=== PATIENT | female | born 1970 | race Caucasian/White ===

== ENCOUNTER 2018-12-18 09:52 | Inpatient (IN) | payer OTHER ==
--- NOTE | 2018-12-18 10:26 | PDOC ---
History of Present Illness - General History Source: Patient Exam Limitations: No Limitations - History of Present Illness Initial Comments: 12/18/18 10:43 The patient is a 48 year old female with a past medical history of insulin dependent diabetes here today for evaluation of toe pain. Patient reports that her right big toe pain began in September of 2018 and went to an urgent care facility who referred her to a finger grip machine operator. She reports that the finger grip machine operator cut off her nail which did not alleviate her symptoms. Patient went to Dr. Thakur for the pain and redness of her toe and began to take bactrim and augmentin [address] Thakur sent her to the ER today due to elevated white blood cell count. Patient denies headache, lightheadedness. Denies fever, chills. Denies chest pain, shortness of breath. Denies nausea, vomiting, diarrhea, abdominal pain. Allergies: NKA Social history: Patient confirms tobacco use PCP: Dr. Urbano <Sukhdeep Hart - Last Filed: 12/18/18 10:57> <Ruben Alcaraz - Last Filed: 12/18/18 14:34> - General Chief Complaint: Back Pain Stated Complaint: PCP SENT FOR ADMISSION Time Seen by Provider: 12/18/18 10:25 Past History <Sukhdeep Hart - Last Filed: 12/18/18 10:57> - Past Medical History COPD: No Diabetes: Yes (onn insulin) HTN: Yes - Suicide/Smoking/Psychosocial Hx Smoking History: Current some day smoker Number of Cigarettes Smoked Daily: 4 Information on smoking cessation initiated: No Hx Alcohol Use: No Drug/Substance Use Hx: No <Ruben Alcaraz - Last Filed: 12/18/18 14:34> - Past Medical History Allergies/Adverse Reactions: Allergies Allergy/AdvReac Type Severity Reaction Status Date / Time No Known Allergies Allergy Verified 12/18/18 10:11 Home Medications: Ambulatory Orders Gabapentin [Neurontin -] 400 mg PO Q8H 12/18/18 Insulin Glargine,Hum.rec.anlog [Lantus] 25 unit SQ HS 12/18/18 Lisinopril [Zestril] 5 mg PO DAILY 12/18/18 Oxycodone HCl 30 mg PO TID 12/18/18 Sitagliptin Phos/Metformin HCl [Janumet 50-1,000 mg Tablet] 1 each PO BID Review of Systems - Review of Systems Able to Perform ROS?: Yes Comments:: 12/18/18 10:43 A complete review of 10 out of 10 review of systems is taken and is negative apart from what is previously mentioned below and in the HPI. <Sukhdeep Hart - Last Filed: 12/18/18 10:57> *Physical Exam - Vital Signs Last Vital Signs Temp Pulse Resp BP Pulse Ox 98.6 F 90 16 115/67 99 12/18/18 10:11 12/18/18 10:11 12/18/18 10:11 12/18/18 10:11 12/18/18 10:11 - Physical Exam Comments: 12/18/18 10:45 Vitals: Triage vital signs reviewed General Appearance: No acute distress, well nourished, well developed Head: Atraumatic Chest Wall: Nontender Cardiac: Regular rate and rhythm, no murmurs, no rubs, no gallops Lungs: Clear to auscultation bilateral, good air movement bilaterally Extremities: +tenderness and erythema of right big toe s/p removal of toe nail. Full range of motion to all extremities, no cyanosis, clubbing, or edema Skin: Warm and dry, no rashes or lesions, no rash, no petechiae Neuro: AOX3; Cranial Nerves 2-12 grossly intact, Strength intact to all extremities, Sensation intact to all extremities, gait normal Psych: Normal mood, normal affect <Sukhdeep Hart - Last Filed: 12/18/18 10:57> - Vital Signs Last Vital Signs Temp Pulse Resp BP Pulse Ox 98.6 F 90 16 115/67 99 12/18/18 10:11 12/18/18 10:11 12/18/18 10:11 12/18/18 10:11 12/18/18 10:11 <Ruben Alcaraz - Last Filed: 12/18/18 14:34> Moderate Sedation - Procedure Monitoring Vital Signs: Procedure Monitoring Vital Signs Temperature 98.6 F 12/18/18 10:11 Pulse Rate 90 12/18/18 10:11 Respiratory Rate 16 12/18/18 10:11 Blood Pressure 115/67 12/18/18 10:11 O2 Sat by Pulse Oximetry (%) 99 12/18/18 10:11 <Sukhdeep Hart - Last Filed: 12/18/18 10:57> - Procedure Monitoring Vital Signs: Procedure Monitoring Vital Signs Temperature 98.6 F 12/18/18 10:11 Pulse Rate 90 12/18/18 10:11 Respiratory Rate 16 12/18/18 10:11 Blood Pressure 115/67 12/18/18 10:11 O2 Sat by Pulse Oximetry (%) 99 12/18/18 10:11 <Ruben Alcaraz - Last Filed: 12/18/18 14:34> ED Treatment Course - LABORATORY CBC & Chemistry Diagram: 12/18/18 11:11 12/18/18 11:11 <Ruben Alcaraz - Last Filed: 12/18/18 14:34> Medical Decision Making - Medical Decision Making 12/18/18 10:43 The patient is a 48 year old female with a past medical history of insulin dependent diabetes and HTN here today for evaluation of toe pain. <Sukhdeep Hart - Last Filed: 12/18/18 10:57> - Medical Decision Making 12/18/18 12:02 Failure of outpatient oral antibiotics for the last 2 months. Increasing WBC. Patient sent to the ED for admission by podiatry Consult placed IV vancomycin and Zosyn ordered We'll admit to medicine for further management. 12/18/18 14:34 <Ruben Alcaraz - Last Filed: 12/18/18 14:34> *DC/Admit/Observation/Transfer - Attestations Scribe Attestion: 12/18/18 10:45 Documentation prepared by JAY Jesus, acting as medical biller coder for Ruben Alcaraz MD. <Sukhdeep Hart - Last Filed: 12/18/18 10:57> - Discharge Dispostion Decision to Admit order: Yes <Ruben Alcaraz - Last Filed: 12/18/18 14:34> Diagnosis at time of Disposition: Diabetic foot infection - Discharge Dispostion Condition at time of disposition: Good
[2018-12-18] MEDS ORDERED: VANCOMYCIN 1,000 MG in DEXTROSE 5%-WATER - 250 ML IVPB ONE (10:32)
[2018-12-18] MEDS ORDERED: VANCOMYCIN 1 GRAM (PRE-DOCKED) 1,000 MG/250 ML BAG IVPB ONE (11:19)
[2018-12-18 11:23] LABS: BASO % 0.5 % (0-2.0); HEMATOCRIT 41.2 % (32.4-45.2); HEMOGLOBIN 14.6 GM/dL (10.7-15.3); LYMPH % 25.3 % (8-40); MCH 32.8 pg (25.7-33.7); MCHC 35.3 g/dl (32.0-36.0); MEAN CELL VOLUME 92.9 fl (80-96); MEAN PLT VOLUME 8.5 fl (7.5-11.1); MONO % 4.8 % (3.8-10.2); NEUT % 68.4 % (42.8-82.8); PLATELET COUNT 289 K/MM3 (134-434); RBC 4.44 M/mm3 (3.60-5.2); RDW 14.3 % (11.6-15.6)
[2018-12-18 11:53] LABS: INR 0.92 (0.83-1.09); PROTHROMBIN TIME (PATIENT) 10.8 SEC (9.7-13.0)
[2018-12-18 11:55] LABS: ACTIVATED PTT 29.1 SECONDS (25.2-36.5)
[2018-12-18 11:57] LABS: ALBUMIN 3.4 g/dl (3.4-5.0); ALK PHOS 100 U/L (45-117); ANION GAP 4 MMOL/L (8-16); BILIRUBIN,TOTAL 0.6 mg/dL (0.2-1); BLOOD UREA NITROGEN 7 mg/dL (7-18); CALCIUM 8.3 mg/dL (8.5-10.1); CHLORIDE 105 mmol/L (98-107); CO2 29 mmol/L (21-32); CREATININE 0.5 mg/dL (0.55-1.3); GLUCOSE,RANDOM 84 mg/dL (74-106); SGOT/AST 11 U/L (15-37); SGPT/ALT 10 U/L (13-61); SODIUM 138 mmol/L (136-145); TOT PROT 6.6 g/dl (6.4-8.2)
--- NOTE | 2018-12-18 11:58 | EKG ---
Test Reason : Blood Pressure : / mmHG Vent. Rate : 085 BPM Atrial Rate : 085 BPM P-R Int : 160 ms QRS Dur : 084 ms QT Int : 386 ms P-R-T Axes : 063 004 018 degrees QTc Int : 459 ms NORMAL SINUS RHYTHM LOW VOLTAGE QRS CANNOT RULE OUT ANTERIOR INFARCT , AGE UNDETERMINED ABNORMAL ECG NO PREVIOUS ECGS AVAILABLE Confirmed by FRANCO MCCONNELL MD ([id number]) on 12/18/2018 11:57:35 AM Referred By: Confirmed By:FRANCO MCCONNELL MD
--- NOTE | 2018-12-18 12:37 | HP ---
CHIEF COMPLAINT: "Sent in by Dr. Thakur for toe infection-failed outpatient therapy" PCP: Dr. Urbano HISTORY OF PRESENT ILLNESS: Patient is a 48 year old female, new to [facility], was sent in to the ED by Dr. Thakur for toe infection-failed outpatient therapy. As per the patient, initially she started having pain in bilateral great toe in September,, saw a Production Proofreader who clipped the nails and sent home. After few days pain got worse , she noticed some redness went to urgent care, blood work was done sent home without any antibiotics. However, the symptoms got worse again, went to urgent care multiple times for an abscess in the right great toe, was drained and got treated with Augmentin and Bactrim. Then last week went to Dr. Thakur's office, wbc noted to be rising then recommended her to be admitted for IV antibiotics. Hence came in to the ED. Patient also reports that pain exists but denies fever, chills, rigors or sweating. Review of other systems were negative. Bowel/bladder habit normal. Sleep/appetite normal. ER course was notable for: (1) Afebrile. Leukocytosis of 13, CRP 1.3, ESR 12 (2) Foot xray: official read pending (3) IV Vancomycin Recent Travel: None PAST MEDICAL HISTORY: DM dx in 2011, Hypertension, chronic back pain, 2000 BSO, PAST SURGICAL HISTORY: 2000 3 surgeries of her ovaries (unsure of the details), 2004 (?washout of the fallopian tubes), 2001 Left knee ligament repair, 2011 spine sx. Social History: Smoking: Active smoker, smokes 1 pack/day since she was 17 Alcohol: Denies Drugs: Denies Family History: Non contributory Occupation: Retired legal administrator Allergies No Known Allergies Allergy (Verified 12/18/18 10:11) HOME MEDICATIONS: Home Medications Medication Instructions Recorded Gabapentin [Neurontin -] 400 mg PO Q8H 12/18/18 Insulin Glargine,Hum.rec.anlog 25 unit SQ HS 12/18/18 [Lantus] Lisinopril [Zestril] 5 mg PO DAILY 12/18/18 Oxycodone HCl 30 mg PO TID 12/18/18 Sitagliptin Phos/Metformin HCl 1 each PO BID 12/18/18 [Janumet 50-1,000 mg Tablet] REVIEW OF SYSTEMS CONSTITUTIONAL: Absent: fever, chills, diaphoresis, generalized weakness, malaise, loss of appetite, weight change HEENT: Absent: rhinorrhea, nasal congestion, throat pain, throat swelling, difficulty swallowing, mouth swelling, ear pain, eye pain, visual changes CARDIOVASCULAR: Absent: chest pain, syncope, palpitations, irregular heart rate, lightheadedness , peripheral edema RESPIRATORY: Absent: cough, shortness of breath, dyspnea with exertion, orthopnea, wheezing, stridor, hemoptysis GASTROINTESTINAL: Absent: abdominal pain, abdominal distension, nausea, vomiting, diarrhea, constipation, melena, hematochezia GENITOURINARY: Absent: dysuria, frequency, urgency, hesitancy, hematuria, flank pain, genital pain MUSCULOSKELETAL: Absent: myalgia, arthralgia, joint swelling, back pain, neck pain SKIN: Present: Redness and pain in the right great toe Absent: rash, itching, pallor HEMATOLOGIC/IMMUNOLOGIC: Absent: easy bleeding, easy bruising, lymphadenopathy, frequent infections ENDOCRINE: Absent: unexplained weight gain, unexplained weight loss, heat intolerance, cold intolerance NEUROLOGIC: Absent: headache, focal weakness or paresthesias, dizziness, unsteady gait, seizure, mental status changes, bladder or bowel incontinence PSYCHIATRIC: Absent: anxiety, depression, suicidal or homicidal ideation, hallucinations. PHYSICAL EXAMINATION Vital Signs - 24 hr 12/18/18 10:11 Temperature 98.6 F Pulse Rate 90 Respiratory 16 Rate Blood Pressure 115/67 O2 Sat by Pulse 99 Oximetry (%) GENERAL: young female, lying in bed comfortably, Awake, alert, and fully oriented, in no acute distress. EYES: EOM intact, no pallor or icterus. NECK: Supple. LUNGS: B/L breath sounds equal, no added sounds. HEART: Regular rate and rhythm, normal S1 and S2 without murmur. ABDOMEN: Soft, nontender, BS +, no organomegaly. UPPER EXTREMITIES: 2+ pulses, warm, well-perfused. No cyanosis. No clubbing. No peripheral edema. LOWER EXTREMITIES: B/L great toe-brownish discoloration + 2+ pulses, warm, well-perfused. No calf tenderness. No peripheral edema. NEUROLOGICAL: No facial droop. Power 5.5 in all extremites. Sensation intact. Cranial nerves II-XII intact. Normal speech. Gait not observed. PSYCHIATRIC: Cooperative. Good eye contact. Appropriate mood and affect. SKIN: Warm, dry, normal turgor, no rashes or lesions noted, normal capillary refill. Laboratory Results - last 24 hr 12/18/18 12/18/18 12/18/18 11:11 11:11 11:11 WBC 13.0 H RBC 4.44 Hgb 14.6 Hct 41.2 MCV 92.9 MCH 32.8 MCHC 35.3 RDW 14.3 Plt Count 289 MPV 8.5 Absolute Neuts (auto) 8.9 H Neutrophils % 68.4 Lymphocytes % 25.3 Monocytes % 4.8 Eosinophils % 1.0 Basophils % 0.5 Nucleated RBC % 0 PT with INR 10.80 INR 0.92 PTT (Actin FS) 29.1 Sodium 138 Potassium 4.0 Chloride 105 Carbon Dioxide 29 Anion Gap 4 L BUN 7 Creatinine 0.5 L Creat Clearance w eGFR > 60 Random Glucose 84 Calcium 8.3 L Total Bilirubin 0.6 AST 11 L ALT 10 L Alkaline Phosphatase 100 C-Reactive Protein 1.3 H Total Protein 6.6 Albumin 3.4 Blood Type Antibody Screen 12/18/18 11:11 WBC RBC Hgb Hct MCV MCH MCHC RDW Plt Count MPV Absolute Neuts (auto) Neutrophils % Lymphocytes % Monocytes % Eosinophils % Basophils % Nucleated RBC % PT with INR INR PTT (Actin FS) Sodium Potassium Chloride Carbon Dioxide Anion Gap BUN Creatinine Creat Clearance w eGFR Random Glucose Calcium Total Bilirubin AST ALT Alkaline Phosphatase C-Reactive Protein Total Protein Albumin Blood Type O POSITIVE Antibody Screen Negative ASSESSMENT/PLAN: Patient is a 48 year old female with significant past medical hx of DM, HTN, chronic back pain was Sent in by Dr. Thakur for toe infection-failed outpatient therapy" # Infection of the great toe nails-r/o osteomyelitis Patient has been getting treatment x 2 months as outpatient, seen 2 vascular physician, completed bactrim and Augmentin, however, on outpatient labs, found to have elevated WBC, pt continues to have pain in both the great toes. Admit to Med-Surg Received a dose of IV Vancomycin in the ED Start IV Unasyn 3gm Q8H Blood cultures/urine cultures pending Foot x-ray done, official read pending Would consider MRI of the b/l foot Discussed with Dr. Thakur, will admit the patient and start on IV Abx Discussed with Dr. Luther # DM A1c in 2017 was 6.6. A1c ordered. Continue ISS. Watch for hypoglycemic episodes # Hypertension Continue Lisinopril 5mg PO daily # Chronic back pain Continue Oxycodone 30mg Q8H PRN # Diabetic neuropathy Continue Gabapentin # Active smoker Patient wants to quit smoker. Nicotine patch ordered # FEN Not on IV fluids, can tolerate PO Electrolytes WNL Diabetic diet # Prophylaxis For DVT: On Lovenox 40mg sq daily For GI: Not indicated # Code Status: Full Code # Dispo: Admit to Med-Surg. Duration of stay unknown. Illness, Investigation and Plan of care explained to the patient. She verbalized understanding. Case discussed with Dr. Osorio. Visit type - Emergency Visit Emergency Visit: Yes ED Registration Date: 12/18/18 Care time: The patient presented to the Emergency Department on the above date and was hospitalized for further evaluation of their emergent condition. - New Patient This patient is new to me today: Yes Date on this admission: 12/18/18 - Critical Care Critical Care patient: No
--- NOTE | 2018-12-18 13:24 | CON.ID ---
Consult Consult Specialty:: infectious diseases Referred by:: Reason for Consultation:: r/o osteo of the great toe - History of Present Illness Chief Complaint: pain swelling and pus drainage from the great toe History of Present Illness: 48 year old female, new to [facility], was sent in to the ED by Dr. Thakur for toe infection-failed outpatient therapy. As per the patient, initially she started having pain in bilateral great toe in September,, saw a Treasury Agent who clipped the nails and sent home. After few days pain got worse, she noticed some redness went to urgent care, blood work was done sent home without any antibiotics. However, the symptoms got worse again, went to urgent care multiple times for an abscess in the right great toe, was drained and got treated with Augmentin and Bactrim. patient was still not becoming well,so was send to the hospital for work up and to figure out if the patient has osteo and then further management currently patient feels ok - History Source History Provided By: Patient Limitations to Obtaining History: No Limitations - Alcohol/Substance Use Hx Alcohol Use: No - Smoking History Smoking history: Current some day smoker Aproximately how many cigarettes per day: 4 Home Medications - Allergies Allergies/Adverse Reactions: Allergies Allergy/AdvReac Type Severity Reaction Status Date / Time ibuprofen [From Motrin] Allergy Hives Verified 12/18/18 15:58 - Home Medications Home Medications: Ambulatory Orders Gabapentin [Neurontin -] 400 mg PO Q8H 12/18/18 Insulin Glargine,Hum.rec.anlog [Lantus] 25 unit SQ HS 12/18/18 Lisinopril [Zestril] 5 mg PO DAILY 12/18/18 RX: Oxycodone HCl 30 mg PO TID 12/18/18 Sitagliptin Phos/Metformin HCl [Janumet 50-1,000 mg Tablet] 1 each PO BIDAC Review of Systems - Review of Systems Constitutional: reports: Chills Eyes: reports: No Symptoms HENT: reports: No Symptoms Neck: reports: No Symptoms Cardiovascular: reports: No Symptoms Respiratory: reports: No Symptoms Gastrointestinal: reports: No Symptoms Genitourinary: reports: No Symptoms Musculoskeletal: reports: No Symptoms Integumentary: reports: Erythema, Other Neurological: reports: No Symptoms Endocrine: reports: No Symptoms Hematology/Lymphatic: reports: No Symptoms Psychiatric: reports: No Symptoms Physical Exam Vital Signs: Vital Signs Temperature 98.6 F 12/18/18 10:11 Pulse Rate 90 12/18/18 10:11 Respiratory Rate 16 12/18/18 10:11 Blood Pressure 115/67 12/18/18 10:11 O2 Sat by Pulse Oximetry (%) 99 12/18/18 10:11 Constitutional: Yes: Well Nourished, No Distress, Calm Eyes: Yes: Conjunctiva Clear HENT: Yes: Atraumatic, Normocephalic Neck: Yes: Supple, Trachea Midline Cardiovascular: Yes: Regular Rate and Rhythm Respiratory: Yes: Regular, CTA Bilaterally Gastrointestinal: Yes: Normal Bowel Sounds, Soft Musculoskeletal: Yes: WNL Extremities: Yes: Erythema, Other Integumentary: Yes: Erythema, Other Wound/Incision: Yes: Clean/Dry, Other (no drainage noted) Neurological: Yes: Alert, Oriented Psychiatric: Yes: Alert, Oriented Labs: CBC, BMP 12/18/18 11:11 12/18/18 11:11 Imaging - Results Chest X-ray: Report Reviewed, Image Reviewed X-ray: Report Reviewed, Image Reviewed Assessment/Plan This is a 48 year old woman with a history of HTN, type 2 DM, peripheral neuropathy, chronic back pain who was sent to the ED by Dr. Thakur for infected right 1st toe. 1. Right 1st toe abscess and cellulitis 2. Onychomycosis of toes 3. Type 2 DM with peripheral neuropathy 4. HTN 5. Chronic back pain 6. Obesity with BMI 33.3 i think from the history and the way patient is i think she has osteo plan will start patient on abx mri watch for drainage get the cx report
[2018-12-18] MEDS ORDERED: AMPICILLIN NA/SULBACTAM NA 3 GM in SODIUM CHLORIDE 100 ML IVPB SCH ×2 (14:15→18:00)
[2018-12-18] MEDS ORDERED: GABAPENTIN 100 MG CAPSULE (FP) ONE (14:18)
[2018-12-18] MEDS ORDERED: oxyCODONE HCL 5 MG TABLET ONE (14:24)
[2018-12-18] MEDS: GABAPENTIN 400 MG CAPSULE (FP) PO SCH ×2 (14:33→21:58)
[2018-12-18] MEDS: oxyCODONE HCL 5 MG TABLET PO PRN ×2 (14:34→21:58)
--- NOTE | 2018-12-18 14:34 | PN ---
Teaching Attending Note Name of Resident: Talia Ward ATTENDING PHYSICIAN STATEMENT I saw and evaluated the patient. I reviewed the resident's note and discussed the case with the resident. I agree with the resident's findings and plan as documented. SUBJECTIVE: This is a 48 year old woman with a history of HTN, type 2 DM, peripheral neuropathy, chronic back pain who was sent to the ED by Dr. Thakur for infected right 1st toe. She says that she developed pain in the toe in September 2018. She went to urgent care and was referred to a oil developer who she says removed the nails from both 1st toes. She says that the she had pain in both toes afterwards. She went to urgent care multiple times and was diagnosed with an abscess of the right 1st toe. The abscess was drained and she was treated with Augmentin and Bactrim. There continued to be no improvement and so she went to [facility] ED. Admission was advised, but she could not stay because of childcare problems. She went to see Dr. Thakur yesterday and he also recommended she be admitted for IV antibiotics. OBJECTIVE: Vital Signs Period Temp Pulse Resp BP Sys/Brennan Pulse Ox Last 24 Hr 98.6 F 90 16 115/67 99 HEART: S1S2, RRR LUNGS: Clear ABDOMEN: Soft, obese, non-tender, non-distended, normal BS EXTREMITIES: Right 1st toe swollen, tender, and discolored. Left 1st toe nail bed discolored. Both nails have been removed Laboratory Tests 12/18/18 12/18/18 12/18/18 11:11 11:11 11:11 WBC 13.0 H RBC 4.44 Hgb 14.6 Hct 41.2 MCV 92.9 MCH 32.8 MCHC 35.3 RDW 14.3 Plt Count 289 MPV 8.5 Absolute Neuts (auto) 8.9 H Neutrophils % 68.4 Lymphocytes % 25.3 Monocytes % 4.8 Eosinophils % 1.0 Basophils % 0.5 Nucleated RBC % 0 ESR 12 PT with INR INR PTT (Actin FS) Sodium 138 Potassium 4.0 Chloride 105 Carbon Dioxide 29 Anion Gap 4 L BUN 7 Creatinine 0.5 L Creat Clearance w eGFR > 60 Random Glucose 84 Calcium 8.3 L Total Bilirubin 0.6 AST 11 L ALT 10 L Alkaline Phosphatase 100 C-Reactive Protein 1.3 H Total Protein 6.6 Albumin 3.4 Blood Type Antibody Screen 12/18/18 12/18/18 11:11 11:11 WBC RBC Hgb Hct MCV MCH MCHC RDW Plt Count MPV Absolute Neuts (auto) Neutrophils % Lymphocytes % Monocytes % Eosinophils % Basophils % Nucleated RBC % ESR PT with INR 10.80 INR 0.92 PTT (Actin FS) 29.1 Sodium Potassium Chloride Carbon Dioxide Anion Gap BUN Creatinine Creat Clearance w eGFR Random Glucose Calcium Total Bilirubin AST ALT Alkaline Phosphatase C-Reactive Protein Total Protein Albumin Blood Type O POSITIVE Antibody Screen Negative Home Medications Medication Instructions Recorded Gabapentin [Neurontin -] 400 mg PO Q8H 12/18/18 Insulin Glargine,Hum.rec.anlog 25 unit SQ HS 12/18/18 [Lantus] Lisinopril [Zestril] 5 mg PO DAILY 12/18/18 Oxycodone HCl 30 mg PO TID 12/18/18 Sitagliptin Phos/Metformin HCl 1 each PO BID 12/18/18 [Janumet 50-1,000 mg Tablet] ASSESSMENT AND PLAN: This is a 48 year old woman with a history of HTN, type 2 DM, peripheral neuropathy, chronic back pain who was sent to the ED by Dr. Thakur for infected right 1st toe. 1. Right 1st toe abscess and cellulitis - s/p prior I&D - Failed outpatient treatment with Augmentin and Bactrim - Zosyn, Vancomycin given in ED - Continue Zosyn - X-rays of right 1st toe pending - ESR 12, C-RP 1.3 - Follow up blood cultures - ID, podiatry consults 2. Onychomycosis of toes 3. Type 2 DM with peripheral neuropathy - Hold Janumet - Continue Lantus - Fingersticks with Novolog sliding scale - Continue Neurontin 4. HTN - Continue Lisinopril 5. Chronic back pain - Continue Neurontin, oxycodone 6. Obesity with BMI 33.3
[2018-12-18 15:54] VITALS: BMI 33.3
[2018-12-18] MEDS: INSULIN SLIDING SCALE (NOVOLOG) 1 VIAL SQ SCH ×2 (16:38→21:59)
[2018-12-18] MEDS: NICOTINE 14 MG/24 HOURS TOPICAL PATCH TD SCH (16:40)
[2018-12-18] MEDS ORDERED: PIPERACILLIN/TAZOBACTAM 3.375 GM VIAL IVPB ONE (18:10)
[2018-12-18] MEDS ORDERED: DEXTROSE 5%-WATER - 50 ML IVPB ONE (18:11)
[2018-12-18] MEDS: PIPERACILLIN/TAZOB 3.375 GM 3.375 GM in DEXTROSE 5%-WATER - 50 ML IVPB SCH (18:22)
--- NOTE | 2018-12-18 18:54 | CONSULT ---
Consult Consult Specialty:: Podiatry Reason for Consultation:: Cellulitis possible OM right big toe - History of Present Illness Chief Complaint: Cellulitis. Right big toe pain since 10/11/18. History of Present Illness: Ingrown nail removed by Dr DOLORES LONG 10/19/18. Referred to him by urgent care and told not to go to her regular Life Skills Consultant who is nc. Her most recent tx was at urgent care again where they I&D her right big toe abscess. Presented to ER 12/09/18 then signed out AMA due to no care for her children. Returned back today as was unable to get out patient MRI and was admitted for full work up of OM. - History Source History Provided By: Patient - Past Medical History ...: No - Alcohol/Substance Use Hx Alcohol Use: No - Smoking History Smoking history: Current some day smoker Have you smoked in the past 12 months: Yes Aproximately how many cigarettes per day: 30 Home Medications - Allergies Allergies/Adverse Reactions: Allergies Allergy/AdvReac Type Severity Reaction Status Date / Time ibuprofen [From Motrin] Allergy Hives Verified 12/18/18 15:58 - Home Medications Home Medications: Ambulatory Orders Gabapentin [Neurontin -] 400 mg PO Q8H 12/18/18 Insulin Glargine,Hum.rec.anlog [Lantus] 25 unit SQ HS 12/18/18 Lisinopril [Zestril] 5 mg PO DAILY 12/18/18 Oxycodone HCl 30 mg PO TID 12/18/18 Sitagliptin Phos/Metformin HCl [Janumet 50-1,000 mg Tablet] 1 each PO BIDAC Physical Exam Vital Signs: Vital Signs Temperature 98.8 F 12/18/18 18:00 Pulse Rate 86 12/18/18 18:00 Respiratory Rate 20 12/18/18 18:00 Blood Pressure 114/74 12/18/18 18:00 O2 Sat by Pulse Oximetry (%) 97 12/18/18 15:54 Extremities: Yes: Other (cellulitis right big toe, -drainage today, +lytic changes right big toe distal tip,) Labs: CBC, BMP 12/18/18 11:11 12/18/18 11:11 Imaging - Results X-ray: Image Reviewed (lytic changes tip of right big toe) Assessment/Plan OM? Cellulitis MRI ordered. If positive will tx with IVABX and HBO. If negative will consult with ID about out patient care.
[2018-12-19] MEDS ORDERED: DEXTROSE 5%-WATER - 50 ML IVPB ONE ×3 (00:45→17:46)
[2018-12-19] MEDS ORDERED: PIPERACILLIN/TAZOBACTAM 3.375 GM VIAL IVPB ONE ×3 (00:45→17:46)
[2018-12-19] MEDS: PIPERACILLIN/TAZOB 3.375 GM 3.375 GM in DEXTROSE 5%-WATER - 50 ML IVPB SCH ×3 (01:01→17:48)
[2018-12-19] MEDS: INSULIN SLIDING SCALE (NOVOLOG) 1 VIAL SQ SCH ×4 (06:15→21:31)
[2018-12-19] MEDS: oxyCODONE HCL 5 MG TABLET PO PRN ×3 (06:18→21:20)
[2018-12-19] MEDS: GABAPENTIN 400 MG CAPSULE (FP) PO SCH ×3 (06:19→21:20)
[2018-12-19 07:31] LABS: BASO % 0.5 % (0-2.0); EOS % 1.5 % (0-4.5); HEMATOCRIT 39.7 % (32.4-45.2); HEMOGLOBIN 13.7 GM/dL (10.7-15.3); LYMPH % 43.9 % (8-40); MCH 31.8 pg (25.7-33.7); MCHC 34.5 g/dl (32.0-36.0); MEAN CELL VOLUME 92.4 fl (80-96); MEAN PLT VOLUME 8.5 fl (7.5-11.1); MONO % 5.4 % (3.8-10.2); NEUT % 48.7 % (42.8-82.8); PLATELET COUNT 287 K/MM3 (134-434); RBC 4.29 M/mm3 (3.60-5.2); RDW 14.4 % (11.6-15.6); WHITE BLOOD COUNT 9.6 K/mm3 (4.0-10.0)
[2018-12-19 08:39] LABS: ALBUMIN 3.1 g/dl (3.4-5.0); ALK PHOS 92 U/L (45-117); ANION GAP 8 MMOL/L (8-16); BILIRUBIN,TOTAL 0.4 mg/dL (0.2-1); BLOOD UREA NITROGEN 8 mg/dL (7-18); CALCIUM 8.4 mg/dL (8.5-10.1); CHLORIDE 107 mmol/L (98-107); CO2 26 mmol/L (21-32); CREATININE 0.6 mg/dL (0.55-1.3); GLUCOSE,RANDOM 104 mg/dL (74-106); POTASSIUM 4.1 mmol/L (3.5-5.1); SGOT/AST 6 U/L (15-37); SGPT/ALT 9 U/L (13-61); SODIUM 140 mmol/L (136-145); TOT PROT 6.2 g/dl (6.4-8.2)
[2018-12-19] MEDS: ENOXAPARIN NA (PORCINE) 40 MG/0.4 ML DISP.SYRIN SQ SCH (10:04)
[2018-12-19] MEDS: LISINOPRIL 5 MG TABLET (FP) PO SCH (10:04)
[2018-12-19] MEDS: NICOTINE 14 MG/24 HOURS TOPICAL PATCH TD SCH (10:05)
--- NOTE | 2018-12-19 12:15 | PN ---
Progress Note, Physician History of Present Illness: patient stable no complaints patient got her mri will see what it shows - Current Medication List Current Medications: Active Medications Enoxaparin Sodium (Lovenox -) 40 mg SQ DAILY [facility] Last Admin: 12/19/18 10:04 Dose: 40 mg Gabapentin (Neurontin -) 400 mg PO TID [facility] Last Admin: 12/19/18 06:19 Dose: 400 mg Piperacillin Sod/Tazobactam (Sod 3.375 gm/ Dextrose) 50 mls @ 100 mls/hr IVPB Q8H-IV [facility] Last Admin: 12/19/18 10:05 Dose: 100 mls/hr Insulin Aspart (Novolog Vial Sliding Scale -) 1 vial SQ ACHS [facility]; Protocol Last Admin: 12/19/18 06:15 Dose: Not Given Lisinopril (Prinivil) 5 mg PO DAILY [facility] Last Admin: 12/19/18 10:04 Dose: 5 mg Nicotine (Nicoderm Patch -) 14 mg TD DAILY [facility] Last Admin: 12/19/18 10:05 Dose: 14 mg Oxycodone HCl (Roxicodone -) 30 mg PO Q8H PRN PRN Reason: PAIN 7-10 Last Admin: 12/19/18 06:18 Dose: 30 mg - Objective Vital Signs: Vital Signs Temperature 98.7 F 12/19/18 08:29 Pulse Rate 79 12/19/18 08:29 Respiratory Rate 14 12/19/18 08:29 Blood Pressure 108/68 12/19/18 08:29 O2 Sat by Pulse Oximetry (%) 96 12/19/18 09:00 Constitutional: Yes: No Distress, Calm Cardiovascular: Yes: Regular Rate and Rhythm Respiratory: Yes: Regular, CTA Bilaterally Gastrointestinal: Yes: Normal Bowel Sounds, Soft Musculoskeletal: Yes: WNL Extremities: Yes: WNL Integumentary: Yes: Erythema, Other Wound/Incision: Yes: Open to air Neurological: Yes: Alert, Oriented Psychiatric: Yes: Alert, Oriented Labs: CBC, BMP 12/19/18 07:00 12/19/18 07:00 INR, PTT INR 0.92 (0.83-1.09) 12/18/18 11:11 Assessment/Plan This is a 48 year old woman with a history of HTN, type 2 DM, peripheral neuropathy, chronic back pain who was sent to the ED by Dr. Thakur for infected right 1st toe. 1. Right 1st toe abscess and cellulitis 2. Onychomycosis of toes 3. Type 2 DM with peripheral neuropathy 4. HTN 5. Chronic back pain 6. Obesity with BMI 33.3 plan await for mri report continue abx once we have the reports will decide the final plan
--- NOTE | 2018-12-19 13:19 | PN ---
Physical Exam: SUBJECTIVE: Patient seen and examined. She has no complaints. OBJECTIVE: Vital Signs Period Temp Pulse Resp BP Sys/Brennan Pulse Ox Last 24 Hr 98.3 F-98.8 F 78-86 14-20 108-114/61-74 96-97 GENERAL: The patient is awake, alert, and fully oriented, in no acute distress. LUNGS: Breath sounds equal, clear to auscultation bilaterally, no wheezes, no crackles, no accessory muscle use. HEART: Regular rate and rhythm, S1, S2 without murmur, rub or gallop. ABDOMEN: Obese, soft, nontender, nondistended, normoactive bowel sounds, no guarding, no rebound, no hepatosplenomegaly, no masses. EXTREMITIES: 2+ pulses, warm, well-perfused, no edema. Laboratory Results - last 24 hr 12/18/18 12/18/18 12/18/18 12:36 16:37 21:57 WBC RBC Hgb Hct MCV MCH MCHC RDW Plt Count MPV Absolute Neuts (auto) Neutrophils % Lymphocytes % Monocytes % Eosinophils % Basophils % Nucleated RBC % Sodium Potassium Chloride Carbon Dioxide Anion Gap BUN Creatinine Creat Clearance w eGFR POC Glucometer 114 103 Random Glucose Hemoglobin A1c % 6.6 H Calcium Total Bilirubin AST ALT Alkaline Phosphatase Total Protein Albumin 12/19/18 12/19/18 12/19/18 06:14 07:00 07:00 WBC 9.6 RBC 4.29 Hgb 13.7 Hct 39.7 MCV 92.4 MCH 31.8 MCHC 34.5 RDW 14.4 Plt Count 287 MPV 8.5 Absolute Neuts (auto) 4.7 Neutrophils % 48.7 D Lymphocytes % 43.9 H D Monocytes % 5.4 Eosinophils % 1.5 Basophils % 0.5 Nucleated RBC % 0 Sodium 140 Potassium 4.1 Chloride 107 Carbon Dioxide 26 Anion Gap 8 BUN 8 Creatinine 0.6 Creat Clearance w eGFR > 60 POC Glucometer 100 Random Glucose 104 Hemoglobin A1c % Calcium 8.4 L Total Bilirubin 0.4 AST 6 L ALT 9 L Alkaline Phosphatase 92 Total Protein 6.2 L Albumin 3.1 L 12/19/18 12/19/18 07:00 12:22 WBC RBC Hgb Hct MCV MCH MCHC RDW Plt Count MPV Absolute Neuts (auto) Neutrophils % Lymphocytes % Monocytes % Eosinophils % Basophils % Nucleated RBC % Sodium Potassium Chloride Carbon Dioxide Anion Gap BUN Creatinine Creat Clearance w eGFR POC Glucometer 123 Random Glucose Hemoglobin A1c % 6.6 H Calcium Total Bilirubin AST ALT Alkaline Phosphatase Total Protein Albumin Active Medications Generic Name Dose Route Start Last Admin Trade Name Freq PRN Reason Stop Dose Admin Enoxaparin Sodium 40 mg 12/19/18 10:00 12/19/18 10:04 Lovenox - SQ 40 mg DAILY [facility] Administration Gabapentin 400 mg 12/18/18 12:45 12/19/18 06:19 Neurontin - PO 400 mg TID [facility] Administration Piperacillin Sod/Tazobactam 50 mls @ 100 mls/hr 12/18/18 18:00 12/19/18 10:05 Sod 3.375 gm/ Dextrose IVPB 100 mls/hr Q8H-IV [facility] Administration Insulin Aspart 1 vial 12/18/18 16:30 12/19/18 12:55 Novolog Vial Sliding Scale - SQ Not Given ACHS [facility] Protocol Lisinopril 5 mg 12/19/18 10:00 12/19/18 10:04 Prinivil PO 5 mg DAILY [facility] Administration Nicotine 14 mg 12/18/18 14:45 12/19/18 10:05 Nicoderm Patch - TD 14 mg DAILY [facility] Administration Oxycodone HCl 30 mg 12/18/18 14:00 12/19/18 06:18 Roxicodone - PO 30 mg Q8H PRN Administration PAIN 7-10 ASSESSMENT/PLAN: This is a 48 year old woman with a history of HTN, type 2 DM, peripheral neuropathy, chronic back pain who was sent to the ED by Dr. Thakur for infected right 1st toe. 1. Right 1st toe abscess and cellulitis - s/p I&D at [facility] previously - Failed outpatient treatment with Augmentin and Bactrim - Continue Zosyn - X-rays of right toes are unremarkable - ESR 12, C-RP 1.3 - Blood cultures negative after 24 hrs - MRI pending 2. Onychomycosis of toes 3. Type 2 DM with peripheral neuropathy - HbA1c 6.6 - Janumet, Lantus held - Continue Novolog sliding scale - Continue Neurontin 4. HTN - Continue Lisinopril 5. Chronic back pain - Continue Neurontin, oxycodone 6. Obesity with BMI 33.3 Visit type - Emergency Visit Emergency Visit: Yes ED Registration Date: 12/18/18 Care time: The patient presented to the Emergency Department on the above date and was hospitalized for further evaluation of their emergent condition. - New Patient This patient is new to me today: No - Critical Care Critical Care patient: No - Discharge Referral Referred to [facility] Med P.C.: No
--- NOTE | 2018-12-19 17:43 | PN ---
Progress Note, Physician Chief Complaint: Pain right big toe. History of Present Illness: Previous I&D performed at urgent care. - Current Medication List Current Medications: Active Medications Enoxaparin Sodium (Lovenox -) 40 mg SQ DAILY [facility] [place] Last Admin: 12/19/18 10:04 Dose: 40 mg Gabapentin (Neurontin -) 400 mg PO TID [facility] Last Admin: 12/19/18 14:22 Dose: 400 mg Piperacillin Sod/Tazobactam (Sod 3.375 gm/ Dextrose) 50 mls @ 100 mls/hr IVPB Q8H-IV [facility] Last Admin: 12/19/18 10:05 Dose: 100 mls/hr Insulin Aspart (Novolog Vial Sliding Scale -) 1 vial SQ ACHS [facility] [place]; Protocol Last Admin: 12/19/18 12:55 Dose: Not Given Lisinopril (Prinivil) 5 mg PO DAILY [facility] [place] Last Admin: 12/19/18 10:04 Dose: 5 mg Nicotine (Nicoderm Patch -) 14 mg TD DAILY [facility] [place] Last Admin: 12/19/18 10:05 Dose: 14 mg Oxycodone HCl (Roxicodone -) 30 mg PO Q8H PRN PRN Reason: PAIN 7-10 Last Admin: 12/19/18 14:25 Dose: 30 mg - Objective Vital Signs: Vital Signs Temperature 98.7 F 12/19/18 08:29 Pulse Rate 79 12/19/18 08:29 Respiratory Rate 14 12/19/18 08:29 Blood Pressure 108/68 12/19/18 08:29 O2 Sat by Pulse Oximetry (%) 96 12/19/18 09:00 Extremities: Yes: Other (+tender red toe, -drainage, +erythema/cellulitis right big toe, +lytic lesions on xray) Labs: CBC, BMP 12/19/18 07:00 12/19/18 07:00 INR, PTT INR 0.92 (0.83-1.09) 12/18/18 11:11 Assessment/Plan r/o om cellulitis Awaiting MRI reading. Reiewed images. Appears to be an infection of bone. Will wait for result reading to confirm. Requested that Urgent care I&D be sent. Patient stated that she would hae faxed to our office. Will follow. ID on case.
[2018-12-19] MEDS ORDERED: INSULIN (NOVOLOG) ASPART 100 UNITS/ML 10ML VIAL ONE (21:30)
[2018-12-20] MEDS ORDERED: DEXTROSE 5%-WATER - 50 ML IVPB ONE ×3 (01:23→17:51)
[2018-12-20] MEDS ORDERED: PIPERACILLIN/TAZOBACTAM 3.375 GM VIAL IVPB ONE ×3 (01:23→17:51)
[2018-12-20] MEDS: PIPERACILLIN/TAZOB 3.375 GM 3.375 GM in DEXTROSE 5%-WATER - 50 ML IVPB SCH ×3 (01:57→17:55)
[2018-12-20] MEDS: oxyCODONE HCL 5 MG TABLET PO PRN ×3 (05:48→21:50)
[2018-12-20] MEDS: GABAPENTIN 400 MG CAPSULE (FP) PO SCH ×3 (05:48→21:50)
[2018-12-20] MEDS: INSULIN SLIDING SCALE (NOVOLOG) 1 VIAL SQ SCH ×4 (06:23→21:50)
--- NOTE | 2018-12-20 08:12 | PN ---
Physical Exam: SUBJECTIVE: Patient seen and examined this AM. She states that her pain is present but for the most part controlled. She denies any fevers or chills overnight. OBJECTIVE: Vital Signs Period Temp Pulse Resp BP Sys/Brennan Pulse Ox Last 24 Hr 98.5 F-98.7 F 73-90 14-20 107-114/63-71 96-96 GENERAL: A&O, no acute distress HEAD: Normocephalic, atraumatic. EYES: PERRL, no scleral icterus EARS, NOSE, THROAT: oropharynx clear without exudates. Moist mucous membranes. NECK: supple without lymphadenopathy LUNGS: CTA b/l, no crackles or wheezes HEART: Regular rate and rhythm, normal S1 and S2 without murmur ABDOMEN: Soft, nontender to palpation, normoactive bowel sounds EXTREMITIES: 2+ pulses, warm, well-perfused. No peripheral edema. Right great toe anterior skin appears debrided, no open wound/ulceration Laboratory Results - last 24 hr 12/19/18 12/19/18 12/19/18 07:00 07:00 12:22 Sodium 140 Potassium 4.1 Chloride 107 Carbon Dioxide 26 Anion Gap 8 BUN 8 Creatinine 0.6 Creat Clearance w eGFR > 60 POC Glucometer 123 Random Glucose 104 Hemoglobin A1c % 6.6 H Calcium 8.4 L Total Bilirubin 0.4 AST 6 L ALT 9 L Alkaline Phosphatase 92 Total Protein 6.2 L Albumin 3.1 L 12/19/18 12/19/18 12/20/18 17:05 21:02 05:01 Sodium Potassium Chloride Carbon Dioxide Anion Gap BUN Creatinine Creat Clearance w eGFR POC Glucometer 110 200 121 Random Glucose Hemoglobin A1c % Calcium Total Bilirubin AST ALT Alkaline Phosphatase Total Protein Albumin Active Medications Generic Name Dose Route Start Last Admin Trade Name Freq PRN Reason Stop Dose Admin Enoxaparin Sodium 40 mg 12/19/18 10:00 12/19/18 10:04 Lovenox - SQ 40 mg DAILY [facility] Administration Gabapentin 400 mg 12/18/18 12:45 12/20/18 05:48 Neurontin - PO 400 mg TID [facility] Administration Piperacillin Sod/Tazobactam 50 mls @ 100 mls/hr 12/18/18 18:00 12/20/18 01:57 Sod 3.375 gm/ Dextrose IVPB 100 mls/hr Q8H-IV [facility] Administration Insulin Aspart 1 vial 12/18/18 16:30 12/20/18 06:23 Novolog Vial Sliding Scale - SQ Not Given ACHS [facility] Protocol Lisinopril 5 mg 12/19/18 10:00 12/19/18 10:04 Prinivil PO 5 mg DAILY [facility] Administration Nicotine 14 mg 12/18/18 14:45 12/19/18 10:05 Nicoderm Patch - TD 14 mg DAILY [facility] Administration Oxycodone HCl 30 mg 12/18/18 14:00 12/20/18 05:48 Roxicodone - PO 30 mg Q8H PRN Administration PAIN 7-10 ASSESSMENT/PLAN: 48 year old woman with a history of HTN, type 2 DM, peripheral neuropathy, chronic back pain who was sent to the ED by Dr. Thakur for infected right 1st toe. Right 1st toe abscess/cellulitis -Podiatry and ID consults appreciated -s/p outpatient I&D, failed outpatient Abx therapy -Continue Zosyn -Xrays without any noticable acute pathology -MRI pending official read -Blood c/s negative -ESR 12, CRP 1.3 NIDDM with peripheral neuropathy -A1C 6.6 -BGMs ACHS -Insulin sliding scale HTN -Lisinopril 5 mg PO Daily Chronic Back Pain -Oxycodone 30 mg PO Q8 PRN -Neurontin 400 mg PO TID DVT Prophylaxis -Lovenox 40 mg SQ Daily FEN -Fluids: none -Electrolytes: No electrolyte abnormalities, BMP in AM -Nutrition: Diabetic/Na controlled diet Disposition Med/Surg Visit type - Emergency Visit Emergency Visit: Yes ED Registration Date: 12/18/18 Care time: The patient presented to the Emergency Department on the above date and was hospitalized for further evaluation of their emergent condition. - New Patient This patient is new to me today: Yes Date on this admission: 12/20/18 - Critical Care Critical Care patient: No
[2018-12-20] MEDS ORDERED: PT OWN MED DRAWER 7, Y5N ONE (09:40)
[2018-12-20] MEDS: NICOTINE 14 MG/24 HOURS TOPICAL PATCH TD SCH (09:49)
[2018-12-20] MEDS: ENOXAPARIN NA (PORCINE) 40 MG/0.4 ML DISP.SYRIN SQ SCH (09:50)
[2018-12-20] MEDS: LISINOPRIL 5 MG TABLET (FP) PO SCH (09:50)
--- NOTE | 2018-12-20 11:30 | PN ---
Progress Note, Physician History of Present Illness: patient stable no complaints awaiting report of mri results - Current Medication List Current Medications: Active Medications Enoxaparin Sodium (Lovenox -) 40 mg SQ DAILY [facility] Last Admin: 12/20/18 09:50 Dose: 40 mg Gabapentin (Neurontin -) 400 mg PO TID [facility] Last Admin: 12/20/18 05:48 Dose: 400 mg Piperacillin Sod/Tazobactam (Sod 3.375 gm/ Dextrose) 50 mls @ 100 mls/hr IVPB Q8H-IV [facility] Last Admin: 12/20/18 10:31 Dose: 100 mls/hr Insulin Aspart (Novolog Vial Sliding Scale -) 1 vial SQ ACHS [facility]; Protocol Last Admin: 12/20/18 06:23 Dose: Not Given Lisinopril (Prinivil) 5 mg PO DAILY [facility] Last Admin: 12/20/18 09:50 Dose: 5 mg Nicotine (Nicoderm Patch -) 14 mg TD DAILY [facility] Last Admin: 12/20/18 09:49 Dose: 14 mg Oxycodone HCl (Roxicodone -) 30 mg PO Q8H PRN PRN Reason: PAIN 7-10 Last Admin: 12/20/18 05:48 Dose: 30 mg - Objective Vital Signs: Vital Signs Temperature 98.5 F 12/20/18 06:00 Pulse Rate 73 12/20/18 06:00 Respiratory Rate 20 12/20/18 06:00 Blood Pressure 107/63 12/20/18 06:00 O2 Sat by Pulse Oximetry (%) 96 12/19/18 21:00 Constitutional: Yes: No Distress, Calm Cardiovascular: Yes: Regular Rate and Rhythm Respiratory: Yes: Regular, CTA Bilaterally Gastrointestinal: Yes: Normal Bowel Sounds, Soft Musculoskeletal: Yes: WNL Extremities: Yes: Other Wound/Incision: Yes: Clean/Dry Neurological: Yes: Alert, Oriented Psychiatric: Yes: Alert, Oriented Labs: CBC, BMP 12/19/18 07:00 12/19/18 07:00 INR, PTT INR 0.92 (0.83-1.09) 12/18/18 11:11 Assessment/Plan This is a 48 year old woman with a history of HTN, type 2 DM, peripheral neuropathy, chronic back pain who was sent to the ED by Dr. Thakur for infected right 1st toe. 1. Right 1st toe abscess and cellulitis 2. Onychomycosis of toes 3. Type 2 DM with peripheral neuropathy 4. HTN 5. Chronic back pain 6. Obesity with BMI 33.3 plan await for mri report continue abx once we have the reports will decide the final plan
--- NOTE | 2018-12-20 19:14 | PN ---
Teaching Attending Note Name of Resident: Flip Gautam ATTENDING PHYSICIAN STATEMENT I saw and evaluated the patient. I reviewed the resident's note and discussed the case with the resident. I agree with the resident's findings and plan as documented. SUBJECTIVE: Patient has no complaints. OBJECTIVE: Vital Signs Period Temp Pulse Resp BP Sys/Brennan Pulse Ox Last 24 Hr 98.5 F-98.6 F 73-90 16-20 92-114/54-71 96 HEART: S1S2, RRR LUNGS: Clear ABDOMEN: Obese, soft, non-tender, non-distended, normal BS EXTREMITIES: Right 1st toe less swollen with less discoloration. Left 1st toe nail bed discolored. Both nails have been removed Laboratory Results - last 24 hr 12/19/18 12/20/18 12/20/18 21:02 05:01 17:30 POC Glucometer 200 121 143 Current Medications Generic Name Dose Route Start Last Admin Trade Name Freq PRN Reason Stop Dose Admin Enoxaparin Sodium 40 mg 12/19/18 10:00 12/20/18 09:50 Lovenox - SQ 40 mg DAILY [facility] Administration Gabapentin 400 mg 12/18/18 12:45 12/20/18 14:04 Neurontin - PO 400 mg TID [facility] Administration Piperacillin Sod/Tazobactam 50 mls @ 100 mls/hr 12/18/18 18:00 12/20/18 17:55 Sod 3.375 gm/ Dextrose IVPB 100 mls/hr Q8H-IV [facility] Administration Insulin Aspart 1 vial 12/18/18 16:30 12/20/18 17:37 Novolog Vial Sliding Scale - SQ Not Given ACHS [facility] Protocol Lisinopril 5 mg 12/19/18 10:00 12/20/18 09:50 Prinivil PO 5 mg DAILY [facility] Administration Nicotine 14 mg 12/18/18 14:45 12/20/18 09:49 Nicoderm Patch - TD 14 mg DAILY [facility] Administration Oxycodone HCl 30 mg 12/18/18 14:00 12/20/18 14:04 Roxicodone - PO 30 mg Q8H PRN Administration PAIN 7-10 ASSESSMENT AND PLAN: This is a 48 year old woman with a history of HTN, type 2 DM, peripheral neuropathy, chronic back pain who was sent to the ED by Dr. Thakur for infected right 1st toe. 1. Right 1st toe cellulitis and osteomyelitis - s/p I&D at urgent care previously - Failed outpatient treatment with Augmentin and Bactrim - Continue Zosyn - Obtain cultures from urgent care - X-rays of right toes are unremarkable - ESR 12, C-RP 1.3 - Blood cultures negative after 24 hrs - MRI shows osteomyelitis of right 1st distal phalanx 2. Onychomycosis of toes 3. Type 2 DM with peripheral neuropathy - HbA1c 6.6 - Janyogesht Lantus held - Continue Novolog sliding scale - Continue Neurontin 4. HTN - Continue Lisinopril 5. Chronic back pain - Continue Neurontin, oxycodone 6. Obesity with BMI 33.3
[2018-12-21] MEDS ORDERED: DEXTROSE 5%-WATER - 50 ML IVPB ONE ×2 (01:04→08:36)
[2018-12-21] MEDS ORDERED: PIPERACILLIN/TAZOBACTAM 3.375 GM VIAL IVPB ONE ×2 (01:04→08:35)
[2018-12-21] MEDS: PIPERACILLIN/TAZOB 3.375 GM 3.375 GM in DEXTROSE 5%-WATER - 50 ML IVPB SCH ×2 (01:20→09:19)
[2018-12-21] MEDS: oxyCODONE HCL 5 MG TABLET PO PRN ×3 (05:55→21:51)
[2018-12-21] MEDS: GABAPENTIN 400 MG CAPSULE (FP) PO SCH ×3 (05:55→21:51)
[2018-12-21] MEDS: INSULIN SLIDING SCALE (NOVOLOG) 1 VIAL SQ SCH ×4 (06:26→22:13)
[2018-12-21 08:05] LABS: ANION GAP 5 MMOL/L (8-16); BLOOD UREA NITROGEN 9 mg/dL (7-18); CALCIUM 8.5 mg/dL (8.5-10.1); CHLORIDE 107 mmol/L (98-107); CO2 26 mmol/L (21-32); CREATININE 0.5 mg/dL (0.55-1.3); GLUCOSE,RANDOM 124 mg/dL (74-106); POTASSIUM 4.5 mmol/L (3.5-5.1); SODIUM 139 mmol/L (136-145)
[2018-12-21 08:06] LABS: HEMATOCRIT 41.2 % (32.4-45.2); HEMOGLOBIN 14.4 GM/dL (10.7-15.3); MCH 32.3 pg (25.7-33.7); MCHC 34.8 g/dl (32.0-36.0); MEAN CELL VOLUME 92.9 fl (80-96); PLATELET COUNT 277 K/MM3 (134-434); RBC 4.44 M/mm3 (3.60-5.2); RDW 14.3 % (11.6-15.6); WHITE BLOOD COUNT 9.9 K/mm3 (4.0-10.0)
[2018-12-21] MEDS: ENOXAPARIN NA (PORCINE) 40 MG/0.4 ML DISP.SYRIN SQ SCH (11:22)
[2018-12-21] MEDS: LISINOPRIL 5 MG TABLET (FP) PO SCH (11:23)
[2018-12-21] MEDS: NICOTINE 14 MG/24 HOURS TOPICAL PATCH TD SCH (11:23)
--- NOTE | 2018-12-21 11:55 | PN ---
Progress Note (short form) - Note Progress Note: FU right big toe. +om on MRI, no growth on wound culture done at urgent care. Most likely due to multiple antibiotic txs unable to grown in culture. wbc has normalized, + improed tenderness om Antibiotics as per ID. HBO consult. Will follow till dc.
--- NOTE | 2018-12-21 13:15 | PN ---
Progress Note, Physician History of Present Illness: stable no complaints patient doing well mri results noted - Current Medication List Current Medications: Active Medications Enoxaparin Sodium (Lovenox -) 40 mg SQ DAILY [facility] Last Admin: 12/21/18 11:22 Dose: 40 mg Gabapentin (Neurontin -) 400 mg PO TID [facility] Last Admin: 12/21/18 05:55 Dose: 400 mg Piperacillin Sod/Tazobactam (Sod 3.375 gm/ Dextrose) 50 mls @ 100 mls/hr IVPB Q8H-IV [facility] Last Admin: 12/21/18 09:19 Dose: 100 mls/hr Insulin Aspart (Novolog Vial Sliding Scale -) 1 vial SQ ACHS [facility]; Protocol Last Admin: 12/21/18 12:16 Dose: Not Given Lisinopril (Prinivil) 5 mg PO DAILY [facility] Last Admin: 12/21/18 11:23 Dose: 5 mg Nicotine (Nicoderm Patch -) 14 mg TD DAILY [facility] Last Admin: 12/21/18 11:23 Dose: 14 mg Oxycodone HCl (Roxicodone -) 30 mg PO Q8H PRN PRN Reason: PAIN 7-10 Last Admin: 12/21/18 05:55 Dose: 30 mg - Objective Vital Signs: Vital Signs Temperature 98.2 F 12/21/18 06:00 Pulse Rate 77 12/21/18 06:00 Respiratory Rate 20 12/21/18 06:00 Blood Pressure 128/84 12/21/18 06:00 O2 Sat by Pulse Oximetry (%) 96 12/20/18 22:43 Constitutional: Yes: No Distress, Calm Cardiovascular: Yes: Regular Rate and Rhythm Respiratory: Yes: Regular, CTA Bilaterally Gastrointestinal: Yes: Normal Bowel Sounds, Soft Musculoskeletal: Yes: WNL Extremities: Yes: WNL Wound/Incision: Yes: Clean/Dry Neurological: Yes: Alert, Oriented Psychiatric: Yes: Alert, Oriented Labs: CBC, BMP 12/21/18 06:30 12/21/18 06:30 INR, PTT INR 0.92 (0.83-1.09) 12/18/18 11:11 Assessment/Plan This is a 48 year old woman with a history of HTN, type 2 DM, peripheral neuropathy, chronic back pain who was sent to the ED by Dr. Thakur for infected right 1st toe. 1. Right 1st toe abscess and cellulitis 2. Onychomycosis of toes 3. Type 2 DM with peripheral neuropathy 4. HTN 5. Chronic back pain 6. Obesity with BMI 33.3 i think from the history and the way patient is i think she has osteo plan continue abx await for the cx reports once we have the cx report will advise abx patient will need it for 4--to--- 5 weeks
--- NOTE | 2018-12-21 14:52 | PN ---
Teaching Attending Note Name of Resident: Flip Gautam ATTENDING PHYSICIAN STATEMENT I saw and evaluated the patient. I reviewed the resident's note and discussed the case with the resident. I agree with the resident's findings and plan as documented. SUBJECTIVE: no complaints wants to go home OBJECTIVE: Vital Signs Temperature 98.2 F 12/21/18 06:00 Pulse Rate 77 12/21/18 06:00 Respiratory Rate 20 12/21/18 06:00 Blood Pressure 128/84 12/21/18 06:00 O2 Sat by Pulse Oximetry (%) 96 12/20/18 22:43 Young F comfortable denies any comaplints HEENT: Mm moist, no anemia, pERRLA, EOMI NECK: No JVd No Bruit CHEST: CTA B/L CVS; s1S2 R no m/g/r ABD: Obese non tender EXT: Rt Great toe Cellulitis MEDICARE SPECIALIST; AOx3 non focal ASSESSMENT AND PLAN: 49 yrs old F with DM admitted with Rt great Toe acute OM on IV abx Plan: Cont current management DC as per Id plan Problem List - Problems (1) Diabetic foot infection Assessment/Plan: On IV abx F/U cultures Code(s): E11.628 - TYPE 2 DIABETES MELLITUS WITH OTHER SKIN COMPLICATIONS; L08.9 - LOCAL INFECTION OF THE SKIN AND SUBCUTANEOUS TISSUE, UNSP (2) T2DM (type 2 diabetes mellitus) Assessment/Plan: Optimize glycemic control Code(s): E11.9 - TYPE 2 DIABETES MELLITUS WITHOUT COMPLICATIONS (3) Diabetic neuropathy Assessment/Plan: Cont gabapentin Code(s): E11.40 - TYPE 2 DIABETES MELLITUS WITH DIABETIC NEUROPATHY, UNSP (4) OM (onychomycosis) Assessment/Plan: Rt Toe may need terbinafine will discuss with ID Code(s): B35.1 - TINEA UNGUIUM
[2018-12-21] MEDS ORDERED: CEFTRIAXONE 2,000 MG in DEXTROSE 5%-WATER - 50 ML IVPB ONE (15:18)
--- NOTE | 2018-12-21 15:43 | DS ---
Physical Exam: SUBJECTIVE: Patient seen and examined this AM. She states her pain is well controlled though she still has some tenderness. Discussed MRI results with her and pt is agreeable to home IV Abx infusion for osteo. Requesting to go home today. OBJECTIVE: Vital Signs Period Temp Pulse Resp BP Sys/Brennan Pulse Ox Last 24 Hr 98.2 F-98.6 F 77-84 20-20 97-128/54-84 96 PHYSICAL EXAM GENERAL: A&O, no acute distress HEAD: Normocephalic, atraumatic. EYES: PERRL, no scleral icterus EARS, NOSE, THROAT: oropharynx clear without exudates. Moist mucous membranes. NECK: supple without lymphadenopathy LUNGS: CTA b/l, no crackles or wheezes HEART: Regular rate and rhythm, normal S1 and S2 without murmur ABDOMEN: Soft, nontender to palpation, normoactive bowel sounds EXTREMITIES: 2+ pulses, warm, well-perfused. No peripheral edema. Right great toe anterior skin appears debrided, no open wound/ulceration LABS Laboratory Results - last 24 hr 12/20/18 12/20/18 12/21/18 17:30 21:48 05:54 WBC RBC Hgb Hct MCV MCH MCHC RDW Plt Count MPV Sodium Potassium Chloride Carbon Dioxide Anion Gap BUN Creatinine Creat Clearance w eGFR POC Glucometer 143 166 106 Random Glucose Calcium 12/21/18 12/21/18 12/21/18 06:30 06:30 12:15 WBC 9.9 RBC 4.44 Hgb 14.4 Hct 41.2 MCV 92.9 MCH 32.3 MCHC 34.8 RDW 14.3 Plt Count 277 MPV 9.0 Sodium 139 Potassium 4.5 Chloride 107 Carbon Dioxide 26 Anion Gap 5 L BUN 9 Creatinine 0.5 L Creat Clearance w eGFR > 60 POC Glucometer 135 Random Glucose 124 H Calcium 8.5 HOSPITAL COURSE: Date of Admission:12/18/18 Date of Discharge: 12/21/18 HPI on Admission: Patient is a 48 year old female, new to [facility], was sent in to the ED by Dr. Thakur for toe infection-failed outpatient therapy. As per the patient, initially she started having pain in bilateral great toe in September,, saw a [employer] [employer] who clipped the nails and sent home. After few days pain got worse , she noticed some redness went to urgent care, blood work was done sent home without any antibiotics. However, the symptoms got worse again, went to urgent care multiple times for an abscess in the right great toe, was drained and got treated with Augmentin and Bactrim. Then last week went to Dr. Thakur's office, wbc noted to be rising then recommended her to be admitted for IV antibiotics. Hence came in to the ED. Patient also reports that pain exists but denies fever, chills, rigors or sweating. Review of other systems were negative. Bowel/bladder habit normal. Sleep/appetite normal. Hospital Course: She was seen by ID who recommended Zosyn and by Podiatry. An MRI was completed which revealed Osteomyelitis in the Right distal phalanx. Culture results were obtained from the Urgent care facility that did the I&D which revealed no bacterial growth. ID agreed to Rocephin 2 gm IV Daily for 4 weeks upon discharge from the hospital with follow up with ID and Podiatry. Pt was discharged pending PICC insertion for IV abx with home nursing services for Abx education and administration. Minutes to complete discharge: 35 Discharge Summary Reason For Visit: DIABETIC FOOT INFECTION Current Active Problems Diabetic foot infection (Acute) Diabetic neuropathy (Acute) OM (onychomycosis) (Acute) T2DM (type 2 diabetes mellitus) (Acute) Condition: Stable - Instructions Diet, Activity, Other Instructions: You were admitted for IV antibiotics after being sent by your cable placer to the Emergency room. You were given IV zosyn in the hospital which was switched to IV Ceftriaxone on discharge. An MRI was performed which revealed osteomyelitis. You will require 4 more weeks of IV Ceftriaxone 2 gm Daily. You should continue all of your other home medications as they are prescribed. You should follow up with your primary care physician within one week of discharge. You should follow up with Dr. Luther (infectious disease) in 2 weeks. You should follow up with your cable placer within 2 weeks of discharge. If you have any high fevers, or worsening or concerning symptoms, you should be seen by your primary physician or return to the emergency department. Referrals: Katya Luther MD [Staff Physician] - Charisse Thakur DPM [Staff Physician] - Disposition: VNS/HOME HEALTH CARE - Home Medications Comprehensive Discharge Medication List: Ambulatory Orders Gabapentin [Neurontin -] 400 mg PO Q8H 01/25/19 Insulin Glargine,Hum.rec.anlog [Lantus] 25 unit SQ HS 12/18/18 Lisinopril [Zestril] 5 mg PO DAILY 12/18/18 Oxycodone HCl 30 mg PO TID 12/18/18 Sitagliptin Phos/Metformin HCl [Janumet 50-1,000 mg Tablet] 1 each PO BIDAC Ceftriaxone [Rocephin 2Gm Ivpb (Pre-Docked)] 2 gm IVPB DAILY 28 Days vial 12/21 Miscellaneous Medical Supply [Outpatient Order] 1 each ASDIR #1 misc This patient is new to me today: No Emergency Visit: Yes ED Registration Date: 12/18/18 Care time: The patient presented to the Emergency Department on the above date and was hospitalized for further evaluation of their emergent condition. Critical Care patient: No - Discharge Referral Referred to [facility] Med P.C.: No
[2018-12-21] MEDS ORDERED: CEFTRIAXONE 2 GM in DEXTROSE 5%-WATER 100 ML IVPB SCH (15:45)
[2018-12-21] MEDS ORDERED: DEXTROSE 5%-WATER 100 ML IVPB ONE (18:31)
[2018-12-21] MEDS: CEFTRIAXONE 2 GM in DEXTROSE 5%-WATER 100 ML IVPB SCH (18:55)
[2018-12-22] MEDS: GABAPENTIN 400 MG CAPSULE (FP) PO SCH (05:58)
[2018-12-22] MEDS: oxyCODONE HCL 5 MG TABLET PO PRN (05:58)
[2018-12-22] MEDS: INSULIN SLIDING SCALE (NOVOLOG) 1 VIAL SQ SCH ×2 (06:44→12:54)
[2018-12-22] MEDS ORDERED: DEXTROSE 5%-WATER 100 ML IVPB ONE (09:08)
[2018-12-22] MEDS: NICOTINE 14 MG/24 HOURS TOPICAL PATCH TD SCH (09:10)
[2018-12-22] MEDS: LISINOPRIL 5 MG TABLET (FP) PO SCH (09:10)
[2018-12-22] MEDS: ENOXAPARIN NA (PORCINE) 40 MG/0.4 ML DISP.SYRIN SQ SCH (09:10)
[2018-12-22] MEDS: CEFTRIAXONE 2 GM in DEXTROSE 5%-WATER 100 ML IVPB SCH (09:10)
[2018-12-22 11:28] VITALS: BP 124/76; PULSE 85; TEMP 98.5
[2018-12-22] MEDS ORDERED: ACETAMINOPHEN 325 MG TABLET (FP) PO ONE (12:27)
--- NOTE | 2018-12-22 12:48 | PN ---
Progress Note, Physician History of Present Illness: patient doing well no distress all results noted cx results noted - Current Medication List Current Medications: Active Medications Enoxaparin Sodium (Lovenox -) 40 mg SQ DAILY [facility] Last Admin: 12/22/18 09:10 Dose: 40 mg Gabapentin (Neurontin -) 400 mg PO TID [facility] Last Admin: 12/22/18 05:58 Dose: 400 mg Ceftriaxone Sodium 2 gm/ (Dextrose) 100 mls @ 200 mls/hr IVPB DAILY [facility] Last Admin: 12/22/18 09:10 Dose: 200 mls/hr Insulin Aspart (Novolog Vial Sliding Scale -) 1 vial SQ ACHS [facility]; Protocol Last Admin: 12/22/18 06:44 Dose: Not Given Lisinopril (Prinivil) 5 mg PO DAILY [facility] Last Admin: 12/22/18 09:10 Dose: 5 mg Nicotine (Nicoderm Patch -) 14 mg TD DAILY [facility] Last Admin: 12/22/18 09:10 Dose: 14 mg Oxycodone HCl (Roxicodone -) 30 mg PO Q8H PRN PRN Reason: PAIN 7-10 Last Admin: 12/22/18 05:58 Dose: 30 mg - Objective Vital Signs: Vital Signs Temperature 98.5 F 12/22/18 11:00 Pulse Rate 85 12/22/18 11:00 Respiratory Rate 14 12/22/18 11:00 Blood Pressure 124/76 12/22/18 11:00 O2 Sat by Pulse Oximetry (%) 96 12/20/18 22:43 Constitutional: Yes: No Distress, Calm Cardiovascular: Yes: Regular Rate and Rhythm Respiratory: Yes: Regular, CTA Bilaterally Gastrointestinal: Yes: Normal Bowel Sounds, Soft Musculoskeletal: Yes: WNL Extremities: Yes: WNL Neurological: Yes: Alert, Oriented Psychiatric: Yes: Alert, Oriented Labs: CBC, BMP 12/21/18 06:30 12/21/18 06:30 INR, PTT INR 0.92 (0.83-1.09) 12/18/18 11:11 Assessment/Plan This is a 48 year old woman with a history of HTN, type 2 DM, peripheral neuropathy, chronic back pain for infected right 1st toe. 1. Right 1st toe abscess and cellulitis 2. Onychomycosis of toes 3. Type 2 DM with peripheral neuropathy 4. HTN 5. Chronic back pain 6. Obesity with BMI 33.3 i think from the history and the way patient is i think she has osteo plan continue abx patient will need abx for another 4 weeks rest as per the team
--- NOTE | 2018-12-22 18:04 | PN ---
Teaching Attending Note Name of Resident: Flip Gautam ATTENDING PHYSICIAN STATEMENT I saw and evaluated the patient. I reviewed the resident's note and discussed the case with the resident. I agree with the resident's findings and plan as documented. SUBJECTIVE: Feels well, pain much improved. No fever/chills. OBJECTIVE: Afebrile, Hemodynamically Stable. Last Vital Signs Temp Pulse Resp BP Pulse Ox 98.5 F 85 14 124/76 96 12/22/18 11:00 12/22/18 11:00 12/22/18 11:00 12/22/18 11:00 12/20/18 22:43 HEENT - Atraumatic, Normocephalic. Heart - S1, S2, RRR Lungs - clear to auscultation, no crackles/wheeze. Abdomen - soft, non-tender. Bowel Sounds normal. Extremities - no edema, no calf tenderness. R 1st toe - no erythema/tenderness. Laboratory Tests 12/18/18 12/18/18 12/18/18 11:11 11:11 11:11 WBC 13.0 H RBC 4.44 Hgb 14.6 Hct 41.2 MCV 92.9 MCH 32.8 MCHC 35.3 RDW 14.3 Plt Count 289 MPV 8.5 Absolute Neuts (auto) 8.9 H Neutrophils % 68.4 Lymphocytes % 25.3 Monocytes % 4.8 Eosinophils % 1.0 Basophils % 0.5 Nucleated RBC % 0 ESR 12 PT with INR INR PTT (Actin FS) Sodium 138 Potassium 4.0 Chloride 105 Carbon Dioxide 29 Anion Gap 4 L BUN 7 Creatinine 0.5 L Creat Clearance w eGFR > 60 POC Glucometer Random Glucose 84 Hemoglobin A1c % Calcium 8.3 L Total Bilirubin 0.6 AST 11 L ALT 10 L Alkaline Phosphatase 100 C-Reactive Protein 1.3 H Total Protein 6.6 Albumin 3.4 Blood Type Antibody Screen 12/18/18 12/18/18 12/18/18 11:11 11:11 12:36 WBC RBC Hgb Hct MCV MCH MCHC RDW Plt Count MPV Absolute Neuts (auto) Neutrophils % Lymphocytes % Monocytes % Eosinophils % Basophils % Nucleated RBC % ESR PT with INR 10.80 INR 0.92 PTT (Actin FS) 29.1 Sodium Potassium Chloride Carbon Dioxide Anion Gap BUN Creatinine Creat Clearance w eGFR POC Glucometer Random Glucose Hemoglobin A1c % 6.6 H Calcium Total Bilirubin AST ALT Alkaline Phosphatase C-Reactive Protein Total Protein Albumin Blood Type O POSITIVE Antibody Screen Negative 12/18/18 12/18/18 12/19/18 16:37 21:57 06:14 WBC RBC Hgb Hct MCV MCH MCHC RDW Plt Count MPV Absolute Neuts (auto) Neutrophils % Lymphocytes % Monocytes % Eosinophils % Basophils % Nucleated RBC % ESR PT with INR INR PTT (Actin FS) Sodium Potassium Chloride Carbon Dioxide Anion Gap BUN Creatinine Creat Clearance w eGFR POC Glucometer 114 103 100 Random Glucose Hemoglobin A1c % Calcium Total Bilirubin AST ALT Alkaline Phosphatase C-Reactive Protein Total Protein Albumin Blood Type Antibody Screen 12/19/18 12/19/18 12/19/18 07:00 07:00 07:00 WBC 9.6 RBC 4.29 Hgb 13.7 Hct 39.7 MCV 92.4 MCH 31.8 MCHC 34.5 RDW 14.4 Plt Count 287 MPV 8.5 Absolute Neuts (auto) 4.7 Neutrophils % 48.7 D Lymphocytes % 43.9 H D Monocytes % 5.4 Eosinophils % 1.5 Basophils % 0.5 Nucleated RBC % 0 ESR PT with INR INR PTT (Actin FS) Sodium 140 Potassium 4.1 Chloride 107 Carbon Dioxide 26 Anion Gap 8 BUN 8 Creatinine 0.6 Creat Clearance w eGFR > 60 POC Glucometer Random Glucose 104 Hemoglobin A1c % 6.6 H Calcium 8.4 L Total Bilirubin 0.4 AST 6 L ALT 9 L Alkaline Phosphatase 92 C-Reactive Protein Total Protein 6.2 L Albumin 3.1 L Blood Type Antibody Screen 12/19/18 12/19/18 12/19/18 12:22 17:05 21:02 WBC RBC Hgb Hct MCV MCH MCHC RDW Plt Count MPV Absolute Neuts (auto) Neutrophils % Lymphocytes % Monocytes % Eosinophils % Basophils % Nucleated RBC % ESR PT with INR INR PTT (Actin FS) Sodium Potassium Chloride Carbon Dioxide Anion Gap BUN Creatinine Creat Clearance w eGFR POC Glucometer 123 110 200 Random Glucose Hemoglobin A1c % Calcium Total Bilirubin AST ALT Alkaline Phosphatase C-Reactive Protein Total Protein Albumin Blood Type Antibody Screen 12/20/18 12/20/18 12/20/18 05:01 17:30 21:48 WBC RBC Hgb Hct MCV MCH MCHC RDW Plt Count MPV Absolute Neuts (auto) Neutrophils % Lymphocytes % Monocytes % Eosinophils % Basophils % Nucleated RBC % ESR PT with INR INR PTT (Actin FS) Sodium Potassium Chloride Carbon Dioxide Anion Gap BUN Creatinine Creat Clearance w eGFR POC Glucometer 121 143 166 Random Glucose Hemoglobin A1c % Calcium Total Bilirubin AST ALT Alkaline Phosphatase C-Reactive Protein Total Protein Albumin Blood Type Antibody Screen 12/21/18 12/21/18 12/21/18 05:54 06:30 06:30 WBC 9.9 RBC 4.44 Hgb 14.4 Hct 41.2 MCV 92.9 MCH 32.3 MCHC 34.8 RDW 14.3 Plt Count 277 MPV 9.0 Absolute Neuts (auto) Neutrophils % Lymphocytes % Monocytes % Eosinophils % Basophils % Nucleated RBC % ESR PT with INR INR PTT (Actin FS) Sodium 139 Potassium 4.5 Chloride 107 Carbon Dioxide 26 Anion Gap 5 L BUN 9 Creatinine 0.5 L Creat Clearance w eGFR > 60 POC Glucometer 106 Random Glucose 124 H Hemoglobin A1c % Calcium 8.5 Total Bilirubin AST ALT Alkaline Phosphatase C-Reactive Protein Total Protein Albumin Blood Type Antibody Screen 12/21/18 12/21/18 12/21/18 12:15 16:50 22:12 WBC RBC Hgb Hct MCV MCH MCHC RDW Plt Count MPV Absolute Neuts (auto) Neutrophils % Lymphocytes % Monocytes % Eosinophils % Basophils % Nucleated RBC % ESR PT with INR INR PTT (Actin FS) Sodium Potassium Chloride Carbon Dioxide Anion Gap BUN Creatinine Creat Clearance w eGFR POC Glucometer 135 163 124 Random Glucose Hemoglobin A1c % Calcium Total Bilirubin AST ALT Alkaline Phosphatase C-Reactive Protein Total Protein Albumin Blood Type Antibody Screen 12/22/18 06:04 WBC RBC Hgb Hct MCV MCH MCHC RDW Plt Count MPV Absolute Neuts (auto) Neutrophils % Lymphocytes % Monocytes % Eosinophils % Basophils % Nucleated RBC % ESR PT with INR INR PTT (Actin FS) Sodium Potassium Chloride Carbon Dioxide Anion Gap BUN Creatinine Creat Clearance w eGFR POC Glucometer 119 Random Glucose Hemoglobin A1c % Calcium Total Bilirubin AST ALT Alkaline Phosphatase C-Reactive Protein Total Protein Albumin Blood Type Antibody Screen ASSESSMENT AND PLAN: 48 year old female with history of HTN, DM 2, peripheral neuropathy, chronic back pain who was referred to the ED by Podiatry for infected right 1st toe. 1. Osteomyelitis and Cellulitis Right 1st toe s/p I and D at urgent care (Cx neg), failed out-patient therapy with Augmentin and Bactrim MRI - Osteomyelitis R 1st distal phalynx. Blood Cx nbegative Afebrile/Hemodynamically stable, clinically improved. Evaluated by ID - medically stable for discharge on IV Rocephin for 4 additional weeks. ID out-patient follow up. 2. DM 2 with peripheral neuropathy Janumet and Lantus to be resumed on discharge. Continue Neurontin. 3. HTN - Continue Lisinopril 4. Chronic back pain - Continue Neurontin, oxycodone
== END 2018-12-22 13:47 | disposition home health service (06) | DRG 638 ==
LOC: JER 09:52 → JERBED 10:37 → J8W 15:03
PROVIDERS: ADMIT Internal Medicine
PROC: 02HV33Z Insertion of Infusion Device into Superior Vena Cava, Percutaneous Approach (ICD-10-PCS; principal; 2018-12-22)
PROC: B518ZZA Fluoroscopy of Superior Vena Cava, Guidance (ICD-10-PCS; 2018-12-22)
DX: E11.69 Type 2 diabetes mellitus with other specified complication (principal); M86.9 Osteomyelitis, unspecified; L03.031 Cellulitis of right toe; E11.40 Type 2 diabetes mellitus with diabetic neuropathy, unspecified; I10 Essential (primary) hypertension; E66.9 Obesity, unspecified; Z68.33 Body mass index [BMI] 33.0-33.9, adult; M54.9 Dorsalgia, unspecified
CPT/HCPCS: 36415; 36569; 71045-TC-FY; 73660-TC-FY; 73718-TC; 77001-TC-FY; 80048; 80053; 82962; 83036; 85025; 85027; 85610; 85651; 85730; 86140; 86850; 86900; 86901; 87040; 93005; 93010; 99282-25; C1751